=== PATIENT | male | born 1955 | race Caucasian/White ===

== ENCOUNTER 2019-01-20 09:24 | Emergency (ER) | payer BC ==
[2019-01-20] MEDS ORDERED: Ketorolac INJ* 30 MG/ML 1 ML VIAL IV PUSH ONE (09:53)
--- NOTE | 2019-01-20 09:54 | ED ---
GI/ HPI - HPI Summary HPI Summary: 63 year old male presents with flank pain for the past week. He states that he' s never had this pain before. He has a chest pain shortness of breath. He does have a history of PEs. No recent travel. He denies any nausea vomiting. No diarrhea constipation. Pain does not change her half vomiting. No urinary symptoms. No hematuria. Has history of RA and ankylosing spondylitis. He states has history of some cystic mass that was causing him hip pain that needed up popping and causing him bleed into his leg. He is concerned that he has a soft tissue mass in his back. He denies any fevers. - History of Current Complaint Chief Complaint: EDFlankPain Time Seen by Provider: 01/20/19 09:32 Stated Complaint: LOWER LEFT ABDOMINAL PAIN PER PT Pain Intensity: 10 - Additional Pertinent History Primary Care Physician: [id number] - Allergy/Home Medications Allergies/Adverse Reactions: Allergies Allergy/AdvReac Type Severity Reaction Status Date / Time No Known Allergies Allergy Verified 01/20/19 09:28 Home Medications: Home Medications Certolizumab Pegol [Cimzia] 200 mg SUBCUT .EVERY 2 WEEKS 01/20/19 [History Confirmed 01/20/19] Cholecalciferol CAP/TAB(NF) [Vitamin D3 CAP/TAB (NF)] 5,000 unit PO DAILY [History Confirmed 01/20/19] Glucosamine CAP (NF) 1,000 cap PO DAILY 01/20/19 [History Confirmed 01/20/19] Losartan TAB* [Cozaar TAB*] 100 mg PO DAILY 01/20/19 [History Confirmed 01/20/19 ] Methylphenidate HCl [Methylphenidate LA] 20 mg PO TID 01/20/19 [History Confirmed 01/20/19] Rivaroxaban TAB(*) [Xarelto 20 mg] 20 mg PO DAILY 01/20/19 [History Confirmed ] buPROPion TAB* [Wellbutrin TAB*] 75 mg PO DAILY 01/20/19 [History Confirmed ] buPROPion TAB* [Wellbutrin TAB*] 150 mg PO DAILY 01/20/19 [History Confirmed ] predniSONE TAB* [Deltasone TAB*] 2.5 mg PO DAILY 01/20/19 [History Confirmed ] PMH/Surg Hx/FS Hx/Imm Hx Endocrine/Hematology History: Denies: Hx Anticoagulant Therapy, Hx Blood Disorders, Hx Blood Transfusions, Hx Bone Marrow Disease, Hx Diabetes, Hx Systemic Lupus Erythematosus, Hx Sickle Cell Disease, Hx Thyroid Disease, Hx Anemia, Hx Unexplained Bleeding, Other Endocrine/Hematological Disorders Cardiovascular History: Reports: Hx Hypertension Denies: Hx Aneurysm, Hx Angina, Hx Angioplasty, Hx Auto Implanted Cardiovert Defib, Hx Cardiac Arrest, Hx Cardiomegaly, Hx Congenital Heart Disease, Hx Congestive Heart Failure, Hx Coronary Artery Disease, Hx Deep Vein Thrombosis, Hx Hypercholesterolemia, Hx Hypotension, Hx Pacemaker/ICD, Hx Peripheral Vascular Disease, Hx Rheumatic Fever, Hx Syncope, Hx Valvular Heart Disease, Other Cardiovascular Problems/Disorders Respiratory History: Reports: Hx Asthma Denies: Hx Bronchopulmonary Dysplasia, Hx Chronic Bronchitis, Hx Chronic Obstructive Pulmonary Disease (COPD), Hx Cystic Fibrosis, Hx Lung Cancer, Hx Pleural Effusion, Hx Pneumonia, Hx Pulmonary Edema, Hx Pulmonary Embolism, Hx Seasonal Allergies, Hx Sleep Apnea, Other Respiratory Problems/Disorders GI History: Denies: Hx Cirrhosis, Hx Crohn's Disease, Hx Diverticulosis, Hx Gall Bladder Disease, Hx Gastroesophageal Reflux Disease, Hx Gastrointestinal Bleed, Hx Hiatal Hernia, Hx Irritable Bowel, Hx Jaundice, Hx Obstructive Bowel, Hx Ileostomy, Hx Pyloric Stenosis, Hx Ulcer, Other GI Disorders History: Denies: Hx Acute Renal Failure, Hx Benign Prostatic Hyperplasia, Hx Chronic Renal Failure, Hx Dialysis, Hx Kidney Infection, Hx Kidney Stones, Hx Renal Disease, Other Problems/Disorders Musculoskeletal History: Reports: Hx Arthritis, Hx Back Problems Denies: Hx Bursitis, Hx Congenital Bone Abnormalities, Hx Fibromyalgia, Hx Gout, Hx Orthopedic Injury, Hx Osteoporosis, Hx Scoliosis, Hx Tendonitis, Other Musculoskeletal History Sensory History: Reports: Hx Contacts or Glasses Denies: Hx Eye Injury, Hx Eye Prosthesis, Hx Glaucoma, Hx Macular Degeneration, Hx Vision Problem, Hx Deafness, Hx Hearing Aid, Hx Hearing Problem , Other Sensory Impairments Opthamlomology History: Reports: Hx Contacts or Glasses Denies: Hx Eye Injury, Hx Eye Prosthesis, Hx Glaucoma, Hx Macular Degeneration, Hx Vision Problem, Other Sensory Impairments Neurological History: Reports: Hx Headaches Denies: Hx Dementia, Hx Developmental Delay, Hx Migraine, Hx Seizures, Hx Spinal Cord Injury, Hx Transient Ischemic Attacks (TIA) Psychiatric History: Reports: Hx Depression Denies: Hx Anxiety, Hx Attention Deficit Hyperactivity Disorder, Hx Autism, Hx Eating Disorder, Hx Oppositional [place] Disorder, Hx Panic Disorder, Hx Post Traumatic Stress Disorder, Hx Inpatient Treatment, Hx Community Mental Health Tx, Hx Schizophrenia, Hx Bipolar Disorder, Hx Suicide Attempt, Other Psychiatric Issues/Disorders - Cancer History Hx Hematologic Symptoms: No Hx Chemotherapy: No Hx Radiation Therapy: No - Surgical History Surgery Procedure, Year, and Place: I AND D SEROMA L HIP. I AND D HEMATOMA L HIP Hx Anesthesia Reactions: No Infectious Disease History: No Infectious Disease History: Denies: Hx Clostridium Difficile, Hx Hepatitis, Hx Human Immunodeficiency Virus (HIV), Hx Shingles, Hx Tuberculosis, Traveled Outside the [place] in Last 30 Days - Social History Alcohol Use: None Hx Substance Use: No Substance Use Type: Reports: None Hx Tobacco Use: No Smoking Status (MU): Never Smoked Tobacco Review of Systems Negative: Fever Negative: Chest Pain Negative: Shortness Of Breath Positive: flank pain All Other Systems Reviewed And Are Negative: Yes Physical Exam Triage Information Reviewed: Yes Vital Signs On Initial Exam: Initial Vitals Temp Pulse Resp BP Pulse Ox 96.3 F 83 20 155/95 98 01/20/19 09:25 01/20/19 09:25 01/20/19 09:25 01/20/19 09:25 01/20/19 09:25 Vital Signs Reviewed: Yes Appearance: Positive: Well-Appearing Skin: Positive: Warm, Dry Head/Face: Positive: Normal Head/Face Inspection Eyes: Positive: Normal, Conjunctiva Clear ENT: Positive: Pharynx normal Respiratory/Lung Sounds: Positive: Clear to Auscultation, Breath Sounds Present Cardiovascular: Positive: Normal, RRR Abdomen Description: Positive: Nontender, Soft, CVA Tenderness (L) Bowel Sounds: Positive: Present Musculoskeletal: Positive: Normal Neurological: Positive: Normal Psychiatric: Positive: Normal Procedures - Sedation Patient Received Moderate/Deep Sedation with Procedure: No Diagnostics - Vital Signs Vital Signs Temp Pulse Resp BP Pulse Ox 01/20/19 09:25 96.3 F 83 20 155/95 98 - Laboratory Result Diagrams: 01/20/19 09:51 01/20/19 09:51 Lab Statement: Any lab studies that have been ordered have been reviewed, and results considered in the medical decision making process. - CT lumbar CT Interpretation Completed By: Radiologist Summary of CT Findings: IMPRESSION: Degenerative disc disease at L2-L3, L3-L4, L4-L5. Spondylitic ridge is noted. Lytic lesion is noted at L3 likely representing a cyst. No fracture is noted. abd CT Interpretation Completed By: Radiologist Summary of CT Findings: IMPRESSION: FATTY INFILTRATION OF THE LIVER. NO HYDRONEPHROSIS OR NEPHROLITHIASIS. - EKG No standard instances Cardiac Rate: NL EKG Rhythm: Sinus Rhythm GIGU Course/Dx - Course Course Of Treatment: 63 year old male presents with flank pain for the past week. He states that he's never had this pain before. He has a chest pain shortness of breath. He does have a history of PEs. No recent travel. He denies any nausea vomiting. No diarrhea constipation. Pain does not change her half vomiting. No urinary symptoms. No hematuria. Has history of RA and ankylosing spondylitis. He states has history of some cystic mass that was causing him hip pain that needed up popping and causing him bleed into his leg. He is concerned that he has a soft tissue mass in his back. He denies any fevers. On exam has mild tenderness of left flank. wbc normal. EKG shows sinus rhythm. Troponin 0. D-dimer is negative. LFTs normal. CT lumbar shows degenerative changes and lytic lesion L3. ct abd normal. urine likely contaminant. will have follow up with neurosurgery. patient understand and agrees with plan. - Diagnoses Differential Diagnoses - Male: Ureteral Calculi, Urinary Tract Infection, Other - fracture Provider Diagnoses: Flank pain Discharge ED - Sign-Out/Discharge Documenting (check all that apply): Patient Departure - Discharge Plan Condition: Good Disposition: HOME Patient Education Materials: Flank Pain (ED) Referrals: Anthony Sky MD [Primary Care Provider] - Monty Allen MD [Medical Doctor] - Additional Instructions: Use ibuprofen or Tylenol for pain every 6 hours ice/heat area, move as much as possible Follow up with primary within 5 days follow up with neurosurgery Return to ED if develop any new or worsening symptoms - Billing Disposition and Condition Condition: GOOD Disposition: Home
[2019-01-20 09:58] LABS: ABS Basophils 0.1 10^3/ul (0-0.2); ABS Eosinophils 0.1 10^3/ul (0-0.6); ABS Lymphocytes 1.7 10^3/ul (1.0-4.8); ABS Monocytes 0.4 10^3/ul (0-0.8); ABS Neutrophils 3.9 10^3/ul (1.5-7.7); Eosinophil % 2.3 %; Hematocrit 49 % (42-52); Hemoglobin 16.5 g/dL (14.0-18.0); Mean Corpuscular HGB Conc 34 g/dL (31-36); Mean Corpuscular Hemoglobin 32 pg (27-31); Mean Corpuscular Volume 93 fL (80-94); Mean Platelet Volume 7.2 fL (7.4-10.4); Nucleated Red Blood Cells % 0.1; Platelet Count 227 10^3/uL (150-450); Red Blood Count 5.22 10^6 /uL (4.18-5.48); Red Cell Distribution Width 13 % (10-15); White Blood Count 6.2 10^3/uL (3.5-10.8)
[2019-01-20 10:17] LABS: Albumin 4.3 g/dL (3.2-5.2); Albumin/Globulin Ratio 1.4 (1-3); BUN/Creatinine Ratio 17.9 (8-20); C Reactive Protein 1.79 mg/L (<8.01); Calcium 9.5 mg/dL (8.6-10.3); EGFR African American 80.4 (>60); EGFR Non-African American 66.4 (>60); Globulin 3.1 g/dL (2-4); Potassium 4.5 mmol/L (3.5-5.0); Total Bilirubin 0.7 mg/dL (0.2-1.0); Total Protein 7.4 g/dL (6.4-8.9); Troponin I 0.01 ng/mL (<0.03)
[2019-01-20] MEDS ORDERED: Iohexol 300* (CONTRAST) 10 ML SDV IV ONE (10:41)
[2019-01-20 11:36] LABS: Urine Appearance Clear; Urine Bilirubin Negative (Negative); Urine Blood 1+ (Negative); Urine Color Yellow; Urine Glucose Negative (Negative); Urine Ketones Negative (Negative); Urine Nitrite Negative (Negative); Urine Protein Negative (Negative); Urine Specific Gravity 1.012 (1.010-1.030); Urine Urobilinogen Negative (Negative)
[2019-01-20 11:47] LABS: Urine Bacteria Absent (Absent); Urine Red Blood Cell 1+(3-5/hpf) (Absent); Urine White Blood Cell Trace(0-5/hpf) (Absent)
[2019-01-20 11:55] VITALS: BP 133/86
== END 2019-01-20 11:45 | disposition home or self-care (01) ==
LOC: ED 09:24
DX: R10.32 Left lower quadrant pain (principal); R07.89 Other chest pain; R06.02 Shortness of breath; M51.36 Other intervertebral disc degeneration, lumbar region; K76.0 Fatty (change of) liver, not elsewhere classified; M89.9 Disorder of bone, unspecified; I10 Essential (primary) hypertension; Z86.711 Personal history of pulmonary embolism; Z79.01 Long term (current) use of anticoagulants; M06.9 Rheumatoid arthritis, unspecified; M45.9 Ankylosing spondylitis of unspecified sites in spine; F32.9 Major depressive disorder, single episode, unspecified
CPT/HCPCS: 36415; 72131; 74177; 80053; 81003; 81015; 83690; 84484; 85025; 85379; 86140; 87086; 93005; 99284; J1885; Q9967

== ENCOUNTER 2019-05-11 10:56 | Inpatient (IN) | payer BC ==
--- NOTE | 2019-05-03 16:34 | HP ---
Amended report to enter cosigning physician on report. HISTORY AND PHYSICAL: DATE OF ADMISSION/SURGERY: 05/11/19 DATE OF OFFICE VISIT: 05/01/19 PRIMARY CARE PHYSICIAN: Dr. Anthony Sky. SURGEON: Tanya Almendraez MD* PROCEDURE: Right total knee arthroplasty. CHIEF COMPLAINT: Right knee pain. HISTORY OF PRESENT ILLNESS: Mr. Hollis is a 63-year-old gentleman with end- stage osteoarthritis of the right knee. He has failed conservative treatment and elected to proceed with a right total knee arthroplasty. PAST MEDICAL HISTORY: High cholesterol, ankylosing spondylitis, RA, hypertension, DISH, history of DVT/PE. PAST SURGICAL HISTORY: Excision of hematoma, left hip. CURRENT MEDICATIONS: 1. Vitamin D3. 2. Losartan potassium 100 mg daily. 3. AndroGel. 4. Ibuprofen as needed. 5. Methylphenidate 20 mg as needed. 6. Xarelto 20 mg a day. 7. Hydrochlorothiazide 25 mg a day. 8. Voltaren gel. 9. Meclizine 1 to 2 tabs as needed. 10. Wellbutrin 75 mg a day. 11. Cymbalta. 12. Chondroitin. ALLERGIES: No known drug allergies. FAMILY HISTORY: Melanoma. SOCIAL HISTORY: He is a 63-year-old gentleman, lives alone. He does not smoke or use drugs. REVIEW OF SYSTEMS: A complete 14-point review of systems was reviewed with the patient. It was positive for history of DVT/PE. He denies history of anesthesia problems or kidney disease. PHYSICAL EXAMINATION GENERAL: He is well developed, well nourished, in no acute distress. VITAL SIGNS: He stands 76 inches tall, weighs 263 pounds. His blood pressure is 152/82 and his heart rate is 95. HEENT: Normocephalic, atraumatic. NECK: Supple. No palpable lymph nodes. PULMONARY: The lungs are clear to auscultation bilaterally. CARDIO: Regular rate and rhythm. Strong S1, S2. ABDOMEN: Soft, nontender, nondistended. MUSCULOSKELETAL: Right lower extremity: The skin is intact. There are no open wounds or abrasions. There is a moderate effusion of the right knee joint and he has some tenderness along the medial and lateral joint lines. Range of motion is 10 to 110 degrees of flexion with patellofemoral crepitus. He is able to dorsiflex and plantarflex. He has a 2+ dorsalis pedis pulse and intact sensation. NEUROLOGIC: He is alert and oriented x3. ASSESSMENT AND PLAN: Mr. Hollis is a 63-year-old gentleman with end-stage osteoarthritis of the right knee. He has failed conservative treatment and elected to proceed with a right total knee arthroplasty. The surgery is scheduled for 05/11/[address] Almendarez discussed the risks and benefits of the surgery at today's visit and all of his questions were answered. He will follow up with Dr. Almendarez 2 weeks after the surgery. No TXA will be used in this. He was instructed to discontinue his Xarelto 6 days prior to the surgery. He will bridge with Lovenox. EMELINA OLEA [id number]/[facility] #: [id number] MTDNey
[~2019-05-11 10:56] MED LIST: Buffered Lidocaine 1% SYRIN* 1 ML/SYRINGE INTRADERM ONE; Dexamethasone IV* 4 MG/ML 1 ML (4 MG) IV SLOW PU ONE; Famotidine IV* 10 MG/ML 2 ML (20 mg) IV ONE; Gabapentin CAP(*) 300 MG PO ONE; Lactated Ringers 1000 ML Bag* 1,000 ML IV SCH
--- OUTSIDE RECORDS SUMMARY | 2019-05-11 11:01 | XMS REPORT | Continuity of Care Document ---
:1955 External Reference #:[id number] Author Name Tanya Almendarez M.D. (transmitted by agent of provider Noal Brown) Address [address] [place] [address] [place] [address] Care Team Providers Name Role Phone Anthony Sky MD - Endocrinology, Care Team Information Real Estate Legal Assistant Diabetes & Metabolism Problems Active Problems Provider Date Rheumatoid arthritis Gerald Chowdary M.D. Onset: 12/17/2011 Ankylosing spondylitis Gerald Chowdary M.D. Onset: 12/17/2011 Medications [facility] (Current) Use Gerald Chowdary M.D. Onset: 12/17/2011 Encounter Chronic pain syndrome Gerald Chowdary M.D. Onset: 03/15/2012 Cellulitis and abscess of toe Gerald Chowdary M.D. Onset: 08/23/2013 Malignant essential hypertension Leo Cottrell M.D. Onset: 11/07/2013 Degenerative joint disease involving Surinder Marquez M.D. Onset: 11/15/2013 multiple joints Taking medication ZURI Rocha Onset: 04/25/2014 Localized, primary osteoarthritis Tanya Almendarez M.D. Onset: 07/10/2015 Brachial neuritis Valdez Mai M.D. Onset: 04/21/2017 Cervical spondylosis without myelopathy Valdez Mai M.D. Onset: 03/31/2017 Social History Type Date Description Comments Sex Unknown Smokeless Tobacco Never Used Smokeless Tobacco ETOH Use Rarely consumes alcohol Tobacco Use Start: Unknown Patient has never smoked Recreational Drug Use Denies Drug Use Smoking Status Reviewed: 03/29/19 Patient has never smoked Exercise Type/Frequency Does not exercise Allergies, Adverse Reactions, Alerts Description No Known Drug Allergies Medications Active Medications SIG Qnty Indications Ordering Date Provider Cimzia Starter Kit inject 400mg 9units M45.0 Stef Mariano, 09/14/2018 6X 200 mg/ML under the skin M.D. Kit at weeks 0, 2, and 4 then 200 mg sq every 2 weeks Sulfasalazine take 2 tabs in 60tabs Stef Quintana, 09/15/2017 500mg Tablets the morning and M.D. 2 tabs in the evening for a total of 4 daily tabs daily ongoing Wrist Splint use nightly to 2units G56.03 Ste[facility] Quintana, [facility] carpal tunnel syndrome in the right and left hand Ra Vitamin D-3 take 1 capsule 90caps Stef Gibsondor, 05/26/2017 2000Unit by mouth once M.D. Capsules daily Losartan Potassium 1 by mouth 90tabs Gerald Chowdary, 11/08/2013 100mg every day M.D. Tablets Androgel apply 5 gm 30daysup Unknown 50mg/5GM Gel daily Ibuprofen prn 20tabs Unknown 400mg Tablets Methylphenidate HCL ER prn Unknown 20mg Xarelto by mouth qd Unknown 20mg Tablets Hydrochlorothiazide 1 by mouth Unknown 25mg every day Tablets Diclofenac Sodium 3 crams Unknown 3% Gel topically 2-4 times a day as needed Meclizine HCL 1-2 tab two Unknown 12.5mg Tablets times a day prn Bupropion HCL Agnieszka Saab, 75mg Tablets Prednisone Agnieszka Saab, 2.5mg Tablets Medications Administered in Office Medication SIG Qnty Indications Ordering Provider Date Depomedrol 40MG Chaya Campbell M.D. 01/05/2018 Injection Depomedrol 40MG Chaya Campbell M.D. 01/05/2018 Injection Synvisc Or Synvisc-One Tanya Almendarez M.D. 03/25/2016 Injection 1 MG Injection Synvisc Or Synvisc-One Tanya Almendarez M.D. 03/18/2016 Injection 1 MG Injection Synvisc Or Synvisc-One Tanya Almendarez M.D. 03/11/2016 Injection 1 MG Injection Depomedrol 40MG Tanya Almendarez M.D. 12/18/2015 Injection Depomedrol 40MG Tanya Almendarez M.D. 07/24/2015 Injection Immunizations CPT Code Status Date Vaccine Reaction Lot # [id number] Given 09/15/2017 Pneumococcal Conjugate no immediate reaction [id number] Vaccine 13 Valent For noted Intramuscular Use Vital Signs Date Vital Result Comment 03/29/2019 9:45am Height 76 inches 6'4" Weight 266.00 lb Heart Rate 92 /min BP Systolic 138 mmHg BP Diastolic 82 mmHg Body Temperature 99.1 F Pain Level 7 BMI (Body Mass Index) 32.4 kg/m2 09/14/2018 8:07am Height 76 inches 6'4" Weight 289.25 lb Heart Rate 97 /min BP Systolic 142 mmHg BP Diastolic 84 mmHg Pain Level 3 O2 % BldC Oximetry 97 % BMI (Body Mass Index) 35.2 kg/m2 Results Test Acquired Date Facility Test Result H/L Range Note Comp Metabolic 11/16/2018 [facility] Sodium 139 mmol/L Normal 135-145 1 [address] [place] [address] [phone] Potassium 4.0 mmol/L Normal 3.5-5.0 Chloride 100 mmol/L Low 101-111 Co2 Carbon Dioxide 32 mmol/L Normal 22-32 Anion Gap 7 mmol/L Normal 2-11 Glucose 104 mg/dL High 70-100 Blood Urea Nitrogen 17 mg/dL Normal 6-24 Creatinine 1.13 mg/dL Normal 0.67-1.17 BUN/Creatinine Ratio 15.0 Normal 8-20 Calcium 9.4 mg/dL Normal 8.6-10.3 Total Protein 7.1 g/dL Normal 6.4-8.9 Albumin 4.4 g/dL Normal 3.2-5.2 Globulin 2.7 g/dL Normal 2-4 Albumin/Globulin Ratio 1.6 Normal 1-3 Total Bilirubin 0.80 mg/dL Normal 0.2-1.0 Alkaline Phosphatase 45 U/L Normal 34-104 Alt 43 U/L Normal 7-52 Ast 28 U/L Normal 13-39 Egfr Non- 65.8 >60 Egfr 79.6 >60 2 Laboratory 11/16/2018 [facility] Testosterone 668.81 Normal 240-950 3, 4 test finding [address] Total ng/[place] [address] [phone] PSA Screening 0.782 ng/mL Normal 0-4.000 5 Lipid Profile 11/16/2018 [facility] Triglycerides 212 mg/dL 6 (Trig/Chol/HDL) [address] [place] [address] [phone] Cholesterol 140 mg/dL 7 HDL Cholesterol 36.5 mg/dL 8 LDL Cholesterol 61 mg/dL 9 Laboratory test 11/16/2018 [facility] C Reactive 1.16 Normal < 8.01 [address] Protein mg/[place] [address] [phone] CBC Auto Diff 11/16/2018 [facility] White Blood 6.2 Normal 3.5 -10.[address] Count 10^3/[place] [address] [phone] Red Blood Count 5.58 10^6/uL High 4.18-5.48 Hemoglobin 17.3 g/dL Normal 14.0-18.0 Hematocrit 51 % Normal 42-52 Mean Corpuscular Volume 91 fL Normal 80-94 Mean Corpuscular Hemoglobin 31 pg Normal 27-31 Mean Corpuscular HGB Conc 34 g/dL Normal 31-36 Red Cell Distribution Width 14 % Normal 10-15 Platelet Count 233 10^3/uL Normal 150-450 Mean Platelet Volume 7.3 fL Low 7.4-10.4 Abs Neutrophils 3.7 10^3/uL Normal 1.5-7.7 Abs Lymphocytes 1.8 10^3/uL Normal 1.0-4.8 Abs Monocytes 0.4 10^3/uL Normal 0-0.8 Abs Eosinophils 0.2 10^3/uL Normal 0-0.6 Abs Basophils 0.1 10^3/uL Normal 0-0.2 Abs Nucleated RBC 0.0 10^3/uL Granulocyte % 60.0 % Lymphocyte % 29.5 % Monocyte % 7.1 % Eosinophil % 2.4 % Basophil % 1.0 % Nucleated Red Blood Cells % 0.3 Laboratory test 11/16/2018 [facility] Erythrocyte Sed 0 mm/Hr Normal 0-19 [address] [place] [address] [phone] Hemoglobin A1c (Glyco HGB) 6.3 % High 4.0-5.6 12 1 MAIL TO [address] [place] [id number] 2 Because ethnic data is not always readily available, this report includes an eGFR for both -Americans and non- Americans. The National Kidney Disease Education Program (NKDEP) does not endorse the use of the MDRD equation for patients that are not between the ages of 18 and 70, are , have extremes of body size, muscle mass, or nutritional status, or are non- or non-. According to the National Kidney Foundation, irrespective of diagnosis, the stage of the disease is based on the level of kidney function: Stage Description GFR(mL/min/1.73 m(2)) 1 Kidney damage with normal or decreased GFR 90 2 Kidney damage with mild decrease in GFR 60-89 3 Moderate decrease in GFR 30-59 4 Severe decrease in GFR 15-29 5 Kidney failure <15 (or dialysis) 3 PLEASE MAIL TO: [address] [facility] [id number] 4 PLEASE MAIL TO: [address] [facility] [id number] 5 Serum levels of PSA measured using the [employer] [place] DXI Hybritech immunoassay should not be interpreted as absolute evidence of the presence or absence of disease. The PSA value should be used in conjunction with other pertinent clinical diagnostic procedures. The values obtained with different assay methods or kits cannot be used interchangeably. 6 Desirable: <150 Borderline High: 150-199 High: 200-499 Very High: >500 7 Desirable: <200 Borderline High: 200-239 High: >239 8 Low: <40 Desirable: 40-60 High: >60 9 Desirable: <100 Near Optimal: 100-129 Borderline High: 130-159 High: 160-189 Very High: >189 10 PLEASE MAIL TO: [address] [facility] [facility] [id number] 11 [facility] [id number] 12 Therapeutic target for the treatment of diabetes mellitus patients is <7% HBA1C, and in selective patients <6.0%. Please refer to [place] Diabetes Association diabetic care guidelines for further information. Procedures Description No Information Available Medical Devices Description No Information Available Encounters Description No Information Available Assessments Date Code Description Provider 03/29/2019 M25.561 Pain in right knee Tanya Almendarez M.D. 03/29/2019 M17.11 Unilateral primary osteoarthritis, right knee Tanya Almendarez M.D. Plan of Treatment 03/29/2019 - Tanya Almendarez M.D.M25.561 Pain in right kneeReferral:Mohini Sahu MD, Hematology & OncologyFollow up:Follow up: will call Marly to schedule TKAM17.11 Unilateral primary osteoarthritis, right knee Functional Status Description No Information Available Mental Status Description No Information Available Referrals Refer to Reason for Referral Status Appt Date Mohini Sahu MD workup for possible TKA; prior blood clot Created [address] [place] [address] [phone]
--- OUTSIDE RECORDS SUMMARY | 2019-05-11 11:01 | XMS REPORT | Continuity of Care Document ---
:1955 External Reference #:[id number] Author Name Tanya Almendarez M.D. (transmitted by agent of provider Chaya Delgadillo) Address [address] [place] [id number] Care Team Providers Name Role Phone Anthony Sky MD - Endocrinology, Care Team Information Implant Coordinator Diabetes & Metabolism Problems Active Problems Provider Date Rheumatoid arthritis Gerald Chowdary M.D. Onset: 12/17/2011 Ankylosing spondylitis Gerald Chowdary M.D. Onset: 12/17/2011 Medications Entry Specialist (Current) Use Gerald Chowdary M.D. Onset: 12/17/2011 Encounter Chronic pain syndrome Gerald Chowdary M.D. Onset: 03/15/2012 Cellulitis and abscess of toe Gerald Chowdary M.D. Onset: 08/23/2013 Malignant essential hypertension Leo Cottrell M.D. Onset: 11/07/2013 Degenerative joint disease involving Surinder Marquez M.D. Onset: 11/15/2013 multiple joints Taking medication ZURI Rocha Onset: 04/25/2014 Localized, primary osteoarthritis Tanya Almendarez M.D. Onset: 07/10/2015 Cervical spondylosis without myelopathy Valdez Mai M.D. Onset: 03/31/2017 Brachial neuritis Valdez Mai M.D. Onset: 04/21/2017 Social History Type Date Description Comments Sex Unknown Smokeless Tobacco Never Used Smokeless Tobacco ETOH Use Rarely consumes alcohol Tobacco Use Start: Unknown Patient has never smoked Recreational Drug Use Denies Drug Use Smoking Status Reviewed: 05/01/19 Patient has never smoked Exercise Type/Frequency Does not exercise Allergies, Adverse Reactions, Alerts Description No Known Drug Allergies Medications Active Medications SIG Qnty Indications Ordering Date Provider Lovenox inject 1 5units Tanya Almendarez, 40mg/0.4ML Solution prefilled syringe M.DDavis 0 subcutaneous daily for 5 days Cimzia Starter Kit inject 400mg 9units M45.0 [place] 6X 200 mg/ML under the skin at Alexandr Quintana 9 Kit weeks 0, 2, and 4 then 200 mg sq every 2 weeks Sulfasalazine take 2 tabs in 60tabs [place] 500mg Tablets the morning and 2 Alexandr Quintana 8 tabs in the evening for a total of 4 daily tabs daily ongoing Wrist Splint use nightly to 2units G56.[address] [place] [facility] [place]pal Alexandr Quintana 8 tunnel syndrome in the right and left hand Ra Vitamin D-3 take 1 capsule by 90caps [place] 2000Unit mouth once daily Alexandr Quintana 8 Capsules Losartan Potassium 1 by mouth every 90tabs Cassoday 100mg day EndoCoralDDavis 4 Tablets Androgel apply 5 gm daily 30daysup Unknown 50mg/5GM Gel 0 Ibuprofen prn 20tabs Unknown 400mg Tablets 0 Methylphenidate HCL ER prn Unknown 20mg 0 Xarelto by mouth qd Unknown 20mg Tablets 0 Hydrochlorothiazide 1 by mouth every Unknown 25mg day 0 Tablets Diclofenac Sodium 3 crams topically Unknown 3% Gel 2-4 times a day 0 as needed Meclizine HCL 1-2 tab two times Unknown 12.5mg Tablets a day prn 0 Bupropion HCL O'sruthi, 75mg Tablets MD Agnieszka 0 Prednisone O'sruthi, 2.5mg Tablets MD Agnieszka 0 Medications Administered in Office Medication SIG Qnty [...] Code Status Date Vaccine Reaction Lot # [id number] Given 09/15/2017 Pneumococcal Conjugate no immediate reaction [id number] Vaccine 13 Valent For noted Intramuscular Use Vital Signs Date Vital Result Comment 05/01/2019 8:32am Height 76 inches 6'4" Weight 263.00 lb Heart Rate 95 /min BP Systolic 152 mmHg BP Diastolic 82 mmHg Body Temperature 97.4 F Pain Level 5 BMI (Body Mass Index) 32.0 kg/m2 03/29/2019 9:45am Height 76 inches 6'4" Weight 266.00 lb Heart Rate 92 /min BP Systolic 138 mmHg BP Diastolic 82 mmHg Body Temperature 99.1 F Pain Level 7 BMI (Body Mass Index) 32.4 kg/m2 Results Test Acquired Date Facility Test Result H/L Range Note Inr/Protime 04/28/2019 [facility] Inr 1.29 High 0.82-1.09 1, [address] [place] [address] [phone] Laboratory test 04/28/2019 [facility] Partial 41.2 seconds High 26.0-38.[address] [place] [address] PTT [phone] Type & Screen 04/28/2019 [facility] Patient O Positive [address] [place] [address] [phone] Antibody Screen NEGATIVE Comp Metabolic 11/16/2018 [facility] Sodium 139 mmol/L Normal 135-[address] [place] [address] [phone] Potassium 4.0 mmol/L Normal 3.5-5.0 Chloride 100 [...] Egfr Non- 65.8 >60 Egfr 79.6 >60 4 Laboratory 11/16/2018 [facility] Testosterone 668.81 Normal 240-950 5, 6 test finding [address] Total ng/[place] [address] [phone] PSA Screening 0.782 ng/mL Normal 0-4.000 7 Lipid Profile 11/16/2018 [facility] Triglycerides 212 mg/dL 8 (Trig/Chol/HDL) [address] [place] [address] [phone] Cholesterol 140 mg/dL 9 HDL Cholesterol 36.5 mg/dL 10 LDL Cholesterol 61 mg/dL 11 Laboratory test 11/16/2018 [facility] C Reactive 1.16 Normal < 8.01 [address] Protein mg/L [place], [place] [id number] [phone] CBC Auto Diff 11/16/2018 [facility] White Blood 6.2 Normal 3.5 -10.[address] Count 10^3/[place] [address] [phone] Red Blood Count 5.58 10^6/uL High 4.18-5.48 [...] Blood Cells % 0.3 Laboratory test 11/16/2018 [facility] Erythrocyte Sed 0 mm/Hr Normal 0-19 [address] [place] [address] [phone] Hemoglobin A1c (Glyco HGB) 6.3 % High 4.0-5.6 14 1 PAIN IN RIGHT KNEE, UNILATERAL PRIMARY OSTEOARTHRI 2 Standard intensity warfarin therapeutic range: 2.0-3.0 High intensity warfarin therapeutic range: 2.5-3.5 3 MAIL TO [address] [facility] [id number] 4 Because ethnic data is not always readily [...] 15-29 5 Kidney failure <15 (or dialysis) 5 PLEASE MAIL TO: [address] [facility] [id number] 6 PLEASE MAIL TO: [address] [facility] [address] 7 Serum levels of PSA measured using the Camila Barbara DXI Hybritech immunoassay should not be interpreted as absolute evidence of the presence or absence of disease. The PSA value should be used in conjunction with other pertinent clinical diagnostic procedures. The values obtained with different assay methods or kits cannot be used interchangeably. 8 Desirable: <150 Borderline High: 150-199 High: 200-499 Very High: >500 9 Desirable: <200 Borderline High: 200-239 High: >239 10 Low: <40 Desirable: 40-60 High: >60 11 Desirable: <100 Near Optimal: 100-129 Borderline High: 130-159 High: 160-189 Very High: >189 12 PLEASE MAIL TO: [address] [facility] [id number] 13 PLEASE MAIL TO: [address] [facility] [phone] 14 Therapeutic target for the treatment of diabetes mellitus patients is <7% HBA1C, and in selective patients <6.0%. Please refer to [place] [employer] diabetic care guidelines for further information. Procedures Description No Information Available Medical Devices Description No Information Available Encounters Type Date Location Provider Dx Diagnosis Office Visit 03/29/2019 [facility] Cedrick Lujan5.561 Pain in right 9:30a at [place] Alexandr knee M17.11 Unilateral primary osteoarthritis, right knee Assessments Date Code Description Provider 05/01/2019 M25.561 Pain in right knee Tanya Almendarez M.D. 05/01/2019 M17.11 Unilateral primary osteoarthritis, right knee Tanya Almendarez M.D. 03/29/2019 M25.561 Pain in right knee Tanya Almendarez M.D. 03/29/2019 M17.11 Unilateral primary osteoarthritis, right knee Tanya Almendarez M.D. Plan of Treatment Future Appointment(s):05/24/2019 10:30 am - EMELINA Rizo at [facility] at Aynymq3605/11/2019 12:30 pm - Mark Olmstead PA-C at [facility] at Jnucsj7705/11/2019 12:30 pm - EMELINA Rizo at [facility] at Uzigrj4205/11/2019 12:30 pm - Tanya Almendarez M.D. at [facility] at Epfhhx0305/01/2019 - Tanya Almendarez M.D.M25.561 Pain in right kneeFollow up:Follow up: 2 weeks after [id number] Unilateral primary osteoarthritis, right knee Functional Status Description No Information Available Mental Status Description No Information Available Referrals Refer to Dr Reason for Referral Status Appt Date Mohini Sahu MD workup for possible TKA; prior blood clot Closed 2019 [address] [place] [address] [phone]
[2019-05-11] MEDS ORDERED: ceFAZolin 2 GM PREMIX in ORs 2 GM/50 ML BAG ONE (11:12)
[2019-05-11] MEDS ORDERED: Gabapentin CAP(*) 300 MG ONE (11:13)
[2019-05-11] MEDS ORDERED: Dexamethasone IV* 4 MG/ML 1 ML (4 MG) ONE (11:13)
[2019-05-11] MEDS ORDERED: Famotidine IV* 10 MG/ML 2 ML (20 mg) ONE (11:13)
[2019-05-11 12:24] LABS: Activated Partial Thrombo Time 34.8 seconds (26.0-38.0); INR 0.98 (0.82-1.09)
[2019-05-11] MEDS ORDERED: ROPIVACAINE 5 MG/ML 30 ML BTL (0.5%) ONE ×3 (12:41→12:57)
[2019-05-11] MEDS ORDERED: fentaNYL* 50 MCG/ML 2 ML VIAL (100 MCG VIAL) ONE ×5 (12:51→17:12)
[2019-05-11] MEDS ORDERED: KETAMINE HCL* 50 MG/ML 10 ML VIAL ONE (12:51)
[2019-05-11] MEDS ORDERED: Midazolam* 1 MG/ML 5 ML VIAL (5 MG) ONE (12:51)
[2019-05-11] MEDS ORDERED: oxyCODONE/Acetamin 5/325 MG* TAB PO PRN (13:34)
[2019-05-11] MEDS ORDERED: Naloxone* 0.4 MG/ML 1 ML VIAL IV PRN (13:34)
[2019-05-11] MEDS ORDERED: HYDROcodone/ACETAMIN 5-325 MG* 1 TAB PO PRN (13:34)
[2019-05-11] MEDS ORDERED: DiMENhydriNATE IV* 50 MG/ML VIAL IV PUSH PRN (13:34)
[2019-05-11] MEDS ORDERED: Propofol* 10 MG/ML 20 ML BTL ONE (13:48)
[2019-05-11] MEDS ORDERED: Lidocaine 2% PF * 5 ML VIAL ONE (13:48)
[2019-05-11] MEDS ORDERED: ceFAZolin 1 GM ADVAN(*) 1 GM ADDV.VIAL IVPB ONE (14:06)
[2019-05-11] MEDS ORDERED: Hydrocortisone INJ* 100 MG/2 ML VIAL (in pyxis) ONE (14:08)
[2019-05-11] MEDS ORDERED: EPHEDrine (Pressors)* 50 MG/ML VIAL ONE (14:22)
[2019-05-11] MEDS ORDERED: Ondansetron INJ* 2 MG/ML VIAL ONE (15:27)
[2019-05-11] MEDS ORDERED: Phenylephrine 40 MCG/ML SYRINGE ONE (15:41)
[2019-05-11] MEDS ORDERED: traMADol TAB* 50 MG PO PRN (16:29)
[2019-05-11] MEDS ORDERED: Magnesium Hydroxide LIQ* 30 ML UDC PO PRN (16:29)
[2019-05-11] MEDS ORDERED: Cyclobenzaprine TAB* 10 MG PO PRN (16:29)
[2019-05-11] MEDS ORDERED: diPHENhydraMINE IV* 50 MG/ML 1 ml VIAL (BENADRYL) IV PRN (16:29)
[2019-05-11] MEDS ORDERED: diPHENhydraMINE PO* 25 MG PO PRN (16:29)
[2019-05-11] MEDS ORDERED: Morphine INJ* 2 MG/ML 1 ML SYRINGE (TWO MG - NEW SYRINGE VERSION) IV PRN (16:29)
[2019-05-11] MEDS ORDERED: Ondansetron INJ* 2 MG/ML VIAL IV PRN (16:29)
[2019-05-11] MEDS ORDERED: Polyethylene Glycol 3350* 17 GM PACKET PO PRN (16:29)
[2019-05-11] MEDS ORDERED: Ondansetron TAB* 4 MG PO PRN (16:29)
[2019-05-11] MEDS ORDERED: oxyCODONE TAB* 5 MG TAB PO PRN (16:29)
[2019-05-11] MEDS ORDERED: Ondansetron ODT TAB* 4 MG PO PRN (16:29)
[2019-05-11] MEDS: fentaNYL* 50 MCG/ML 2 ML VIAL (100 MCG VIAL) IV PRN ×4 (17:01→17:15)
[2019-05-11] MEDS ORDERED: buPROPion TAB* 75 MG PO SCH (18:00)
[2019-05-11] MEDS: Lactated Ringers 1000 ML Bag* 1,000 ML IV SCH (18:42)
--- NOTE | 2019-05-11 19:57 | OP ---
Operative Report - Blank - Operative Report Date of Operation: 05/11/19 Note: BETINA RINALDI 1955 Date of Surgery: 05/11/19 Tanya Almendarez MD Anesthesia Director: Oliva TARANGO did help throughout the procedure with preparation of the knee, wound retraction, manipulation of the knee, and wound closure. Anesthesiologist: Dr. Norwood Anesthesia Type: General Preoperative Diagnosis: Right severe degenerative osteoarthritis of the knee Postoperative Diagnosis: As above Procedure Performed: Right Total Knee Arthroplasty Tourniquet time: 53 minutes Complications: None Specimen: Bone and cartilage from the right knee joint sent to pathology. Hardware Used: Cemented De La Rosa and Nephew total knee hardware was used - For the femur a size 8 right oxinium legion posterior stabilized femoral component, for the tibia a size 7 right yareli II tibial baseplate, for the insert a size 9mm 7-8 posterior stabilized articular polyethylene insert, and for the patella a size 35 3-peg all poly patella. Brief History/Indication: BETINA RINALDI was known in clinic and had a history of severe right knee pain and swelling. He failed conservative treatment with anti-inflammatories, pain pills, intra-articular injections and physical therapy. He elected to undergo right total knee arthroplasty due to continued pain and decreased quality of life. Radiographs showed severe end stage osteoarthritis of the knee with bone on bone contact. Informed consent was obtained from the patient. He understood the risks of surgery included but were not limited to: bleeding, infection, damage to nearby structures, intraoperative fracture, nerve palsy, failure of the hardware, early loosening, knee stiffness or loss of motion, anesthesia complications, stroke, heart attack , blood clot and . He wished to proceed. Intra-Operative Findings: Intraoperatively the patient was noted to have severe loss of cartilage in all 3 compartments of the knee. He had a 15 degree flexion contracture to start the case. Description of the Procedure: BETINA RINALDI was identified in the preanesthesia unit. His right knee was marked as the correct operative side. Informed consent was signed and placed in the chart. The patient was taken to the operating room and placed under anesthesia without complication. A hensley catheter was placed. A tourniquet was placed on the right thigh. The right lower extremity was prepped and draped in the usual sterile fashion. Preoperative time-out was made to correctly identify the patient, side and site. Appropriate intraoperative antibiotics were given within one hour of incision. Tourniquet was inflated. A midline incision was made and carried sharply down to the extensor mechanism. A new 10 blade was used to make a standard medial parapatellar arthrotomy. The patella was subluxed laterally. Electrocautery was used to dissect soft tissue off the superomedial tibia to the midsagittal plane. The knee was flexed up. The anterior horn of the lateral meniscus and the ACL were sharply incised. A drill was used to enter the distal femur. The intramedullary distal femoral cutting guide was pinned on the distal femur. The oscillating saw was used to make the distal femoral cut. The external rotation guide was pinned on the distal femur and the distal femur was sized to a size 8. The size 8 multi-cutting jig was pinned on the distal femur. The oscillating saw was used to make the appropriate 4 chamfer cuts. Next the PCL was completely released. The extramedullary tibial cutting guide was pinned on the proximal tibia and the oscillating saw was used to make the proximal tibial cut perpendicular to the mechanical axis of the tibia. The bone was carefully removed. The knee was brought out into full extension. The spacer block was placed and had excellent fit with the knee in full extension. The medial and lateral ligaments were well balanced. The flexion and extension gaps were well balanced. The knee was flexed up. Lamina process tank tender was placed both medially and laterally. Any remaining meniscus was removed with electrocautery. Curved osteotome was used to remove any posterior osteophytes. The tibial tray and drop graciela were placed and confirmed a satisfactory tibial cut. The size 8 right femoral trial was impacted onto the distal femur. This trial had excellent fit and stability. The box for the posterior stabilized implant was prepared using a box cut osteotome and a reamer. Next a tibial tray trial and 9 mm insert trial was placed. The knee was taken through a range of motion and had full extension to 130 degrees of flexion. Patellofemoral tracking was satisfactory. The patella was inverted and sized to a size 35. Three peg holes were drilled through the size 35 drill guide. The trial patella was placed and the knee was taken through a range of motion. There was satisfactory patellofemoral tracking. All trials were removed. The tibia was subluxed anteriorly and sized to a size 7. The proximal tibial was prepared with a size 7 keel punch. All bony cut surfaces were irrigated with sterile saline and dried. Final implants were cemented into place starting with the tibia, followed by the femur, and last the patella. A 9 mm insert trial was placed and the knee was brought into full extension. Tourniquet was turned down and the knee was copiously irrigated with sterile saline. Electrocautery was used to obtain meticulous hemostasis. Once the cement had fully cured, the insert trial was removed. Any excess cement was removed from around the hardware and capsule. Final insert chosen was a 9 mm posterior stabilized Yareli II articular insert size 7-8. Stability of the insert was checked and noted to be stable. The extensor mechanism was closed using number 1 vicryls. The rest of the incision was closed in a layered fashion using 0 and 2-0 vicryls. The skin was closed using 3-0 nylon suture. Sterile xeroform, 4x4s and webril were used to cover the incision. William wrap and cold pack were used to cover the dressings. The patients anesthesia was reversed without difficulty. He was taken to the PACU in stable condition. Intended weight-bearing will be as tolerated.
[2019-05-11] MEDS: oxyCODONE/Acetamin 5/325 MG* TAB PO PRN (20:15)
[2019-05-11] MEDS: Magnesium Hydroxide LIQ* 30 ML UDC PO SCH (20:16)
[2019-05-11] MEDS: Docusate CAP* 100 MG PO SCH (20:16)
[2019-05-11] MEDS: Acetaminophen TAB* 325 MG PO SCH (20:17)
[2019-05-11] MEDS: ceFAZolin 1 GM ADVAN(*) 1 GM in NS 0.9% 50 ML* 50 ML IVPB SCH (22:00)
[2019-05-12] MEDS: oxyCODONE/Acetamin 5/325 MG* TAB PO PRN ×3 (01:03→11:08)
[2019-05-12] MEDS: Lactated Ringers 1000 ML Bag* 1,000 ML IV SCH (05:52)
[2019-05-12] MEDS: ceFAZolin 1 GM ADVAN(*) 1 GM in NS 0.9% 50 ML* 50 ML IVPB SCH ×2 (05:52→13:50)
[2019-05-12 06:02] LABS: Hematocrit 39 % (42-52); Hemoglobin 13.1 g/dL (14.0-18.0); Mean Platelet Volume 7.2 fL (7.4-10.4); Platelet Count 215 10^3/uL (150-450)
[2019-05-12] MEDS: Acetaminophen TAB* 325 MG PO SCH ×2 (06:02→13:49)
[2019-05-12 06:18] LABS: BUN/Creatinine Ratio 15.1 (8-20); Calcium 8.9 mg/dL (8.6-10.3); EGFR African American 85.7 (>60); EGFR Non-African American 70.8 (>60); Potassium 4.2 mmol/L (3.5-5.0)
--- NOTE | 2019-05-12 08:32 | PN ---
Subjective - Subjective Reason for Note: Consultation Note History: Internal medicine/primary care: Day 1 post right total knee arthroplasty. He is walking with physical therapy as I enter. I walk alongside as he walks out of his room, across the armenta to the rehabilitation room. He walks with a normal gabrielle and shows no limp. He is tolerating the pain well. He has had no problems with the procedure or post operative period. He is eating/drinking. He has passed flatus, but since his Martinez catheter was removed he has not yet voided. He denies chest pain, palpitations, dypsnea. He has no cough/sputum. Active Problems: Active Problems History of arthroplasty of right knee (Acute) Z96.651 Ankylosing Spondylosis (Chronic 11/14/13) Deep venous thrombosis of right femoral vein (Chronic 11/14/13) I82.411 Essential hypertension (Chronic) I10 Hypercholesterolemia (Chronic) E78.00 Hypertriglyceridemia (Chronic 11/14/13) E78.1 Hypogonadism male (Chronic 11/14/13) E29.1 Obesity (BMI 35.0-39.9 without comorbidity) (Chronic 11/14/13) E66.01 Sleep apnea (Chronic) G47.30 Current Medications: Current Medications Acetaminophen (Tylenol Tab*) 975 mg PO Q8HR [facility] Last Admin: 05/12/19 06:02 Dose: Not Given Bisacodyl (Dulcolax Supp*) 10 mg RI DAILY PRN PRN Reason: CONSTIPATION Bupropion HCl (Wellbutrin Xl *) 150 mg PO QAM [facility] Bupropion HCl (Wellbutrin Tab*) 75 mg PO 1400 [facility] Cyclobenzaprine HCl (Flexeril Tab*) 10 mg PO Q6H PRN PRN Reason: SPASMS Last Admin: 05/11/19 20:16 Dose: 10 mg Diphenhydramine HCl (Benadryl Iv*) 25 mg IV Q6H PRN PRN Reason: PRURITIS Diphenhydramine HCl (Benadryl Po*) 25 mg PO Q6H PRN PRN Reason: PRURITIS Docusate Sodium (Colace Cap*) 100 mg PO BID [facility] Last Admin: 05/11/19 20:16 Dose: 100 mg Duloxetine HCl (Cymbalta Cap*) 60 mg PO QAM [facility] Hydrochlorothiazide (Hydrodiuril Tab*) 25 mg PO QAM [facility] Cefazolin Sodium 1 gm/ Sodium (Chloride) 50 mls @ 200 mls/hr IVPB Q8H [facility] Stop: 05/12/19 14:14 Last Admin: 05/12/19 05:52 Dose: 200 mls/hr Lactated Ringer's (Lactated Ringers 1000 Ml Bag*) 1,000 mls @ 100 mls/hr IV PER RATE [facility] Last Admin: 05/12/19 05:52 Dose: 100 mls/hr Lactulose (Lactulose*) 30 ml PO BID PRN PRN Reason: CONSTIPATION Losartan Potassium (Cozaar Tab*) 100 mg PO QAM [facility] Magnesium Hydroxide (Milk Of Magnesia Liq*) 30 ml PO BID [facility] Last Admin: 05/11/19 20:16 Dose: 30 ml Magnesium Hydroxide (Milk Of Magnesia Liq*) 30 ml PO Q6H PRN PRN Reason: CONSTIPATION Morphine Sulfate (Morphine Inj (Syringe))*) 2 mg IV Q4H PRN PRN Reason: Pain - Unrelieved Multivitamins (Theragran Tab*) 1 tab PO DAILY [facility] Ondansetron HCl (Zofran Inj*) 4 mg IV Q6H PRN PRN Reason: NAUSEA Ondansetron HCl (Zofran Odt Tab*) 4 mg PO Q6H PRN PRN Reason: NAUSEA Ondansetron HCl (Zofran Tab*) 4 mg PO Q6H PRN PRN Reason: NAUSEA Oxycodone HCl (Roxycodone Tab*) 10 mg PO Q4H PRN PRN Reason: Pain - Breakthrough Oxycodone/Acetaminophen (Percocet 5/325 Tab*) 2 tab PO Q4H PRN PRN Reason: PAIN - SEVERE Last Admin: 05/12/19 05:52 Dose: 2 tab Polyethylene Glycol/Electrolytes (Miralax (17 Gm Dose Martin)) 17 gm PO DAILY PRN PRN Reason: Constipation Prednisone (Deltasone 5 Mg Tab) 2.5 mg PO QAM [facility] Rivaroxaban (Xarelto(*)) 20 mg PO DAILY [facility] Testosterone (Testosterone Gel 25 Mg/2.5 G) 75 mg TOPICAL QAM [facility] Tramadol HCl (Ultram*) 50 mg PO Q6H PRN PRN Reason: PAIN - MODERATE Home Medications: Home Medications Medication Instructions Recorded Confirmed Type DULoxetine CAP* [Cymbalta CAP*] 60 mg PO QAM 12/08/11 05/11/19 History Testosterone GEL (NF) [Androgel 75 mg TOPICAL QAM 12/08/11 05/11/19 History (NF)] Hydrochlorothiazide TAB* 25 mg PO QAM 11/29/15 05/11/19 History [Hydrodiuril TAB*] Ibuprofen TAB* [Motrin TAB* 400 MG] 800 mg PO Q6H PRN #0 tab 12/02/15 05/11/19 Rx Cholecalciferol CAP/TAB(NF) 2,000 unit PO QAM 01/20/19 05/11/19 History [Vitamin D3 CAP/TAB (NF)] Glucosamine CAP (NF) 1,000 cap PO BID 01/20/19 05/11/19 History Losartan TAB* [Cozaar TAB*] 100 mg PO QAM 01/20/19 05/11/19 History Methylphenidate HCl 20 mg PO QPM 01/20/19 05/11/19 History [Methylphenidate LA] Rivaroxaban TAB(*) [Xarelto 20 mg] 20 mg PO QAM 01/20/19 05/11/19 History buPROPion TAB* [Wellbutrin TAB*] 75 mg PO QPM 01/20/19 05/11/19 History predniSONE 5 mg TAB [Deltasone 2.5 mg PO QAM 01/20/19 05/11/19 History TAB*] Niacin ER CAP* [Niaspan ER CAP*] 1,000 mg PO BID 04/28/19 05/11/19 History Lovenox 05/11/19 History buPROPion HCl [Bupropion Xl] 150 mg PO DAILY 05/11/19 05/11/19 History Allergies: Allergies Allergy/AdvReac Type Severity Reaction Status Date / Time No Known Allergies Allergy Verified 05/11/19 11:35 Objective - Vital Signs Vital Signs: Vital Signs 05/11/19 05/11/19 05/11/19 11:40 16:35 16:40 Temperature 98.6 F 97.3 F Pulse Rate 80 95 97 Respiratory 16 18 18 Rate Blood Pressure 148/94 126/93 138/89 (mmHg) O2 Sat by Pulse 96 91 100 Oximetry 05/11/19 05/11/1920 17:01 17:05 17:10 Temperature Pulse Rate Respiratory 16 18 18 Rate Blood Pressure (mmHg) O2 Sat by Pulse Oximetry 05/11/19 05/11/19 05/11/19 17:15 17:35 18:29 Temperature 97.3 F 97.1 F Pulse Rate 101 103 105 Respiratory 18 18 16 Rate Blood Pressure 123/82 115/76 108/67 (mmHg) O2 Sat by Pulse 100 97 94 Oximetry 05/11/19 05/11/19 05/11/19 18:38 19:41 20:15 Temperature 97.7 F Pulse Rate 104 Respiratory 20 20 18 Rate Blood Pressure 117/60 (mmHg) O2 Sat by Pulse 94 Oximetry 05/11/19 05/11/19 05/11/19 20:16 20:30 20:32 Temperature 97.3 F Pulse Rate 103 Respiratory 18 18 18 Rate Blood Pressure 100/55 (mmHg) O2 Sat by Pulse 94 Oximetry 05/11/19 05/12/19 05/12/19 22:43 00:35 00:59 Temperature 98.1 F 98.9 F Pulse Rate 102 99 Respiratory 16 18 Rate Blood Pressure 137/66 135/71 (mmHg) O2 Sat by Pulse 95 92 92 Oximetry 05/12/19 05/12/19 05/12/19 01:03 03:14 03:57 Temperature 99.1 F Pulse Rate 93 Respiratory 18 14 17 Rate Blood Pressure 120/67 (mmHg) O2 Sat by Pulse 95 Oximetry 05/12/19 05/12/19 05/12/19 05:52 07:31 07:39 Temperature 98.8 F Pulse Rate 86 Respiratory 16 16 16 Rate Blood Pressure 101/64 (mmHg) O2 Sat by Pulse 94 94 Oximetry - Intake and Output Intake and Output: Intake & Output 05/09/19 05/10/19 05/11/19 05/12/19 11:59 11:59 11:59 11:59 Intake Total 5028 Output Total 2245 Balance 2783 Weight 370 lb Intake: IV Fluids 3330 LR 3280 NS 50ML, Cefazolin 2G 50 IVPB 58 ABX - CEFAZOLIN 58 Oral 1640 Output: Martinez 2125 Estimated Blood Loss 120 ADLs: Meal Record Start: 05/11/19 18: 38 Freq: Status: Active Protocol: Created 03/12/20 18:38 [id number] (Rec: 05/11/19 18:38 [id number]) Intake and Output Start: 05/11/19 18: 38 Freq: DAILY@0600,1400,2200 Status: Active Protocol: Created 05/11/19 18:38 [id number] (Rec: 05/11/19 18:38 [id number]) Document 05/11/19 22:39 [id number] (Rec: 05/11/19 22:43 [id number]) Document 05/12/19 03:57 [id number] (Rec: 05/12/19 03:57 [id number]) Document 05/12/19 05:21 [id number] (Rec: 05/12/19 05:25 [id number]) Document 05/12/19 06:04 [id number] (Rec: 05/12/19 06:04 [id number]) - Physical Exam General Physical Exam Comment: warm and well perfused, hemodynamically stable General: No Cyanosis, No Anemia, No Jaundice, No Clubbing Lungs and Chest: Yes: Chest Expansion Full, Chest Expansion Symetrica, Percussion Note Resonant, Vessicular Breath Sounds. No: Crackles, Wheezes Heart Rate and Rhythm: Regular Additional Cardiovascular: Yes: Normal Heart Sounds. No: Heart Murmur Results - Results Lab Results: Laboratory Results - last 24 hr 05/11/19 05/12/19 05/12/19 12:00 05:32 05:32 Hgb 13.1 L Hct 39 L Plt Count 215 MPV 7.2 L INR (Anticoag Therapy) 0.98 APTT 34.8 Sodium 136 Potassium 4.2 Chloride 98 L Carbon Dioxide 31 Anion Gap 7 BUN 16 Creatinine 1.06 Est GFR ( Amer) 85.7 Est GFR (Non-Af Amer) 70.8 BUN/Creatinine Ratio 15.1 Glucose 121 H Calcium 8.9 Assessment - Problem List Assessment: Patient Problems History of arthroplasty of right knee (Acute) Ankylosing Spondylosis (Chronic 11/14/13) Deep venous thrombosis of right femoral vein (Chronic 11/14/13) Essential hypertension (Chronic) Hypercholesterolemia (Chronic) Hypertriglyceridemia (Chronic 11/14/13) Hypogonadism male (Chronic 11/14/13) Obesity (BMI 35.0-39.9 without comorbidity) (Chronic 11/14/13) Sleep apnea (Chronic) Plan: History of arthroplasty of right knee (Acute) 1 day post operative. He is doing very well - walking independently. He has no hemodynamic, respiratory or other blood loss problems following the surgery and requires no general medical intervention Comorbidities: Deep venous thrombosis of right femoral vein (Chronic 11/14/13) History of pulmonary embolism - He will restart rivaroxaban today. Secondary diagnosis: Ankylosing Spondylosis (Chronic 11/14/13) Essential hypertension (Chronic) Hypercholesterolemia (Chronic) Hypertriglyceridemia (Chronic 11/14/13) Hypogonadism male (Chronic 11/14/13) Obesity (BMI 35.0-39.9 without comorbidity) (Chronic 11/14/13) Sleep apnea (Chronic) From the medical point of view he can be discharged today.
[2019-05-12] MEDS: Magnesium Hydroxide LIQ* 30 ML UDC PO SCH (08:48)
[2019-05-12] MEDS: Docusate CAP* 100 MG PO SCH (08:48)
[2019-05-12] MEDS ORDERED: CMC:TESTOSTERONE GEL 25 MG (NF) IN 2.5 GM SIZE PACKET TOPICAL SCH (09:00)
[2019-05-12] MEDS ORDERED: Hydrochlorothiazide TAB* 25 MG PO SCH (09:00)
[2019-05-12] MEDS ORDERED: BuPROPion XL* 150 MG TAB.XL PO SCH (09:00)
[2019-05-12] MEDS ORDERED: Losartan TAB* 25 MG PO SCH (09:00)
[2019-05-12] MEDS ORDERED: Vitamin THERAPEUTIC TAB PO SCH (09:00)
[2019-05-12] MEDS ORDERED: Rivaroxaban TAB(*) 20 MG TAB PO SCH (09:00)
[2019-05-12] MEDS ORDERED: DULoxetine DR CAP* 30 MG CAP.DR PO SCH (09:00)
[2019-05-12] MEDS ORDERED: Ibuprofen TAB* 400 MG PO PRN (09:36)
--- NOTE | 2019-05-12 10:06 | PN ---
Progress Note - Progress Note Date of Service: 05/12/19 SOAP: Subjective: Pt was seen this morning sitting up in bed. States that he is doing well. Pain is under control. Has done well with PT this morning. Has done the stairs also. He denies any chest pain, SOB, nausea or vomiting. He would like to go home tonight. Objective: [General: Pt is alert and oriented x3. NAD MSK, RLE: Dressing is c/d/i. Dressing changed today, incision is c/d/i. No drainage or erythema. +df/pf, calf soft and non tender. 2+ DP pulse. Vital Signs Temp 98.8 F 05/12/19 07:31 Pulse 86 05/12/19 07:31 Resp 20 05/12/19 07:39 BP 101/64 05/12/19 07:31 Pulse Ox 94 05/12/19 07:39 Intake & Output 05/11/19 05/12/19 05/12/19 18:59 06:59 18:59 Intake Total 2890 1100 1038 Output Total 195 2050 Balance 2695 -950 1038 Weight 370 lb Intake: IV Fluids 2350 980 LR 2300 980 NS 50ML, Cefazolin 2G 50 IVPB 58 ABX - CEFAZOLIN 58 Oral 540 1100 Output: Martinez 75 2050 Estimated Blood Loss 120 ] Assessment: [POD 1 RTKA ] Plan: [Pt does have a chronic DVT. He will remain on Xarelto 20 mg q day Pt would like to take Ibuprofen 400mg bid. He states that he is on this amount at home and does very well with it. This was ordered PT Pt will be discharged home today after second PT session. ]
--- NOTE | 2019-05-12 10:14 | DS ---
Orthopedic Discharge Summary - Discharge Summary Date of Admission:05/11/19 Date of Discharge: 05/12/2019 Date of Surgery: 05/11/2019 Attending Orthopedic Provider: Dr. Almendarez Pre-operative Diagnosis: Right knee osteoarthritis Operative Procedure: Right total knee replacement Disposition of Patient: Home Home care vs Outpatient services: Home care Condition of Patient: Good Pain medication RX at discharge: Percocet 5/325 DVT prophylaxis RX at discharge: Xarelto 20mg History: BETINA RINALDI is a 63 year old M with years of increasingly severe right knee pain. Patient has failed conservative management and has elected to undergo a right total knee replacement Hospital Course: BETINA was admitted to [facility] on 05/11/19. Patient underwent a right total knee replacement without complication followed by a brief recovery in PACU and transfer to the Short Stay Surgical Unit in stable condition. Our hospitalist service, physical therapy and occupational therapy also participated in this patients care. Post-op day 1: patient was alert and in no acute distress. Dressing was clean, dry and intact. Operative extremity dorsiflexion and plantarflexion intact, sensation intact to light touch distally, DP2+. Dressing was changed, incision was clean, dry and intact. Patient was deemed to be medically and orthopedically stable for discharge. Physical therapy goals were met. Home Medications Medication Instructions Recorded Confirmed Type DULoxetine DR CAP* [Cymbalta CAP*] 60 mg PO QAM 12/08/11 05/11/19 History Testosterone GEL (NF) [Androgel 75 mg TOPICAL QAM 12/08/11 05/11/19 History (NF)] Hydrochlorothiazide TAB* 25 mg PO QAM 11/29/15 05/11/19 History [Hydrodiuril TAB*] Ibuprofen TAB* [Motrin TAB* 400 MG] 800 mg PO Q6H PRN #0 tab 12/02/15 05/11/19 Rx Cholecalciferol CAP/TAB(NF) 2,000 unit PO QAM 01/20/19 05/11/19 History [Vitamin D3 CAP/TAB (NF)] Glucosamine CAP (NF) 1,000 cap PO BID 01/20/19 05/11/19 History Losartan TAB* [Cozaar TAB*] 100 mg PO QAM 01/20/19 05/11/19 History Methylphenidate HCl 20 mg PO QPM 01/20/19 05/11/19 History [Methylphenidate LA] Rivaroxaban TAB(*) [Xarelto 20 mg] 20 mg PO QAM 01/20/19 05/11/19 History buPROPion TAB* [Wellbutrin TAB*] 75 mg PO QPM 01/20/19 05/11/19 History predniSONE 5 mg TAB [Deltasone 5 2.5 mg PO QAM 01/20/19 05/11/19 History mg TAB] Niacin ER CAP* [Niaspan ER CAP*] 1,000 mg PO BID 04/28/19 05/11/19 History Lovenox 05/11/19 History buPROPion HCl [Bupropion Xl] 150 mg PO DAILY 05/11/19 05/11/19 History oxyCODONE/Acetamin 5/325 MG* 2 tab PO Q4H PRN tab 05/12/19 Rx [Percocet 5/325 TAB*] Discharge Instructions following Orthopedic Surgery: Activity: * Weight Bearing as tolerated * Continue physical therapy and occupational therapy exercises as shown * If you have elected to have home physical therapy, continue therapy exercises at home. If you have elected outpatient physical therapy, please start therapy as an outpatient right away. Wound care: * OK to shower on post-op day 3, no bathing, swimming, or submerging wound. * Use gentle soap, pat dry. Cover with gauze, EUGENE wrap or tape. * If you elected to have a visiting home nurse, they will perform wound checks. Call Orthopedic office for: * Increased drainage * Redness * Increased pain * Fever Go to ER with shortness of breath or chest pain. Diet: * Regular diet * Increase fluids and fiber to prevent constipation. * Continue to use stool softeners, call office if no bowel motion within 48 hours. Medications See Home Medication List in your packet for medications that you should take after discharge. DVT Prophylaxis: Xarelto Dosin mg daily x 30 days Pain Control: Percocet 5/325 mg 1 tab for moderate pain and 2 tabs for severe pain by mouth every 4 hours as needed. Maximum of 10 tabs per day. Hold for sedation , wean off as soon as pain allows Please note that Percocet contains Tylenol (acetaminophen). Maximum daily dose of Tylenol is 4000 mg from all sources. Antibiotics are required prior to any dental work. FOLLOW UP: Follow up with Dr. Almendarez Within 10 - 14 days, call for appointment Please call our office with any questions or concerns ([phone])
[2019-05-12 11:43] VITALS: BP 115/61
[2019-05-12] MEDS ORDERED: buPROPion TAB* 75 MG PO SCH (14:00)
== END 2019-05-12 14:29 | disposition home or self-care (01) | DRG 302 ==
LOC: AA 10:56 → SSU 16:29
PROVIDERS: ADMIT Orthopaedic Surgery Adult Reconstructive Orthopaedic Surgery; ATTEND Orthopaedic Surgery Adult Reconstructive Orthopaedic Surgery
PROC: 0SRC069 Replacement of Right Knee Joint with Oxidized Zirconium on Polyethylene Synthetic Substitute, Cemented, Open Approach (ICD-10-PCS; principal; 2019-05-11 14:00)
DX: M17.11 Unilateral primary osteoarthritis, right knee (principal); I82.509 Chronic embolism and thrombosis of unspecified deep veins of unspecified lower extremity; I82.511 Chronic embolism and thrombosis of right femoral vein; Z68.42 Body mass index [BMI] 45.0-49.9, adult; E78.00 Pure hypercholesterolemia, unspecified; M06.9 Rheumatoid arthritis, unspecified; I10 Essential (primary) hypertension; M48.10 Ankylosing hyperostosis [Forestier], site unspecified; M45.9 Ankylosing spondylitis of unspecified sites in spine; M25.461 Effusion, right knee; E78.1 Pure hyperglyceridemia; E29.1 Testicular hypofunction; E66.9 Obesity, unspecified; G47.30 Sleep apnea, unspecified; F32.9 Major depressive disorder, single episode, unspecified; M25.761 Osteophyte, right knee; Z79.899 Other long term (current) drug therapy; Z79.52 Long term (current) use of systemic steroids; Z86.718 Personal history of other venous thrombosis and embolism; Z86.711 Personal history of pulmonary embolism
CPT/HCPCS: 36415; 80048; 85014; 85018; 85049; 85610; 85730; 88305; 88311; A9270-GY; C1776; J0690; J1100; J1720; J2250; J2405; J2704; J2795; J3010; J7512

== ENCOUNTER 2019-06-13 11:54 | Emergency (ER) | payer BC ==
--- NOTE | 2019-06-13 12:17 | ED ---
HPI Cardiac - HPI Summary HPI Summary: 63 year old M presenting to [facility] with a chief complaint of feeling his heart skipping a beat since this morning. The patient denies pain but is aware it is happening. Has taken pulse - has not been fast. Patient reports a history of an AV heart block "when I vagel" , pulmonary emboli - blood clots on xarelto, and a recent left knee surgery. Pt state his anticoagulation was bridged with lovenox at time of surgery. Patient denies any chest pain or shortness of breath. no diaphoresis. Pt states went to ortho appt today for knee - discussed palpitation - sent to ED for eval. Pt did have coffee this am. Slept poorly last night. Pt took percocet last night for knee, APAP this am. no OTC meds, decongestants. He states that he has had similar symptoms previously. He was seen by Dr. Almendarez today. Patient's medication reviewed this visit. Allergy list reviewed. Pt evaluated during COVID-19 pandemic- pt denies cough, sob, sore throat, fever , recent illness, contact with PUI/COVID + person - History of Current Complaint Chief Complaint: EDDysrhythmPalp Stated Complaint: GENERAL PER PT Time Seen by Provider: 06/13/19 12:10 Hx Obtained From: Patient Onset/Duration: Still Present Timing: Constant Aggravating Factor(s): Nothing Alleviating Factor(s): Nothing Associated Signs and Symptoms: Positive: Negative - Sore throat. Negative: Chest Pain, Shortness of Breath, Fever, Diaphoresis, Cough - Additional Pertinent History Primary Care Physician: [id number] - Allergy/Home Medications Allergies/Adverse Reactions: Allergies Allergy/AdvReac Type Severity Reaction Status Date / Time No Known Allergies Allergy Verified 06/06/19 12:01 Home Medications: Home Medications DULoxetine CAP* [Cymbalta CAP*] 60 mg PO DAILY 12/08/11 [History Confirmed ] Testosterone GEL (NF) [Androgel (NF)] 75 mg TOPICAL QAM 12/08/11 [History Confirmed 06/13/19] Hydrochlorothiazide TAB* [Hydrodiuril TAB*] 25 mg PO DAILY 11/29/15 [History Confirmed 06/13/19] Cholecalciferol CAP/TAB(NF) [Vitamin D3 CAP/TAB (NF)] 2,000 unit PO DAILY [History Confirmed 06/13/19] Losartan TAB* [Cozaar TAB*] 100 mg PO DAILY 01/20/19 [History Confirmed 06/13/19 ] Methylphenidate HCl [Methylphenidate LA] 20 mg PO DAILY 01/20/19 [History Confirmed 06/13/19] Rivaroxaban TAB(*) [Xarelto 20 mg] 20 mg PO DAILY 01/20/19 [History Confirmed ] buPROPion TAB* [Wellbutrin TAB*] 75 mg PO QPM 01/20/19 [History Confirmed ] predniSONE 5 mg TAB [Deltasone 5 mg TAB] 2.5 mg PO DAILY 01/20/19 [History Confirmed 06/13/19] buPROPion HCl [Bupropion Xl] 150 mg PO QAM 05/11/19 [History Confirmed 06/13/19] oxyCODONE/Acetamin 5/325 MG* [Percocet 5/325 TAB*] 2 tab PO Q4H PRN tab [Rx Confirmed 06/13/19] Dextroamphetamine/Amphetamine [Dextroamp-Amphetamin 20 mg Tab] 20 mg PO DAILY [History Confirmed 06/13/19] Diclofenac 1% GEL (NF) [Voltaren 1% GEL (NF)] 3 % TOPICAL BID 06/06/19 [History Confirmed 06/13/19] Diclofenac Sodium 1.5 % BOTH EYES . DIRECTED 06/06/19 [History Confirmed 06/12] Enoxaparin(*) [Lovenox(*)] 80 mg SUBCUT .PRIOR TO SURGERY 06/06/19 [History Confirmed 06/13/19] Ibuprofen TAB* [Motrin TAB* 400 MG] 400 mg PO Q6H PRN MDD 4 tabs 06/06/19 [ History Confirmed 06/13/19] Meclizine TAB* [Antivert 12.5 TAB*] 12.5 - 25 mg PO BID PRN 06/06/19 [History Confirmed 06/13/19] Sildenafil (NF) [Viagra (NF)] 100 mg PO DAILY 06/06/19 [History Confirmed ] PMH/Surg Hx/FS Hx/Imm Hx Endocrine/Hematology History: Reports: Other Endocrine/Hematological Disorders - Blood clots Denies: Hx Anticoagulant Therapy, Hx Blood Disorders, Hx Blood Transfusions, Hx Bone Marrow Disease, Hx Diabetes, Hx Systemic Lupus Erythematosus, Hx Sickle Cell Disease, Hx Thyroid Disease, Hx Anemia, Hx Unexplained Bleeding Cardiovascular History: Reports: Hx Hypertension Denies: Hx Aneurysm, Hx Angina, Hx Angioplasty, Hx Auto Implanted Cardiovert Defib, Hx Cardiac Arrest, Hx Cardiomegaly, Hx Congenital Heart Disease, Hx Congestive Heart Failure, Hx Coronary Artery Disease, Hx Deep Vein Thrombosis, Hx Hypercholesterolemia, Hx Hypotension, Hx Pacemaker/ICD, Hx Peripheral Vascular Disease, Hx Rheumatic Fever, Hx Syncope, Hx Valvular Heart Disease, Other Cardiovascular Problems/Disorders Respiratory History: Reports: Hx Asthma, Hx Pulmonary Embolism Denies: Hx Bronchopulmonary Dysplasia, Hx Chronic Bronchitis, Hx Chronic Obstructive Pulmonary Disease (COPD), Hx Cystic Fibrosis, Hx Lung Cancer, Hx Pleural Effusion, Hx Pneumonia, Hx Pulmonary Edema, Hx Seasonal Allergies, Hx Sleep Apnea, Other Respiratory Problems/Disorders GI History: Denies: Hx Cirrhosis, Hx Crohn's Disease, Hx Diverticulosis, Hx Gall Bladder Disease, Hx Gastroesophageal Reflux Disease, Hx Gastrointestinal Bleed, Hx Hiatal Hernia, Hx Irritable Bowel, Hx Jaundice, Hx Obstructive Bowel, Hx Ileostomy, Hx Pyloric Stenosis, Hx Ulcer, Other GI Disorders History: Denies: Hx Acute Renal Failure, Hx Benign Prostatic Hyperplasia, Hx Chronic Renal Failure, Hx Dialysis, Hx Kidney Infection, Hx Kidney Stones, Hx Renal Disease, Other Problems/Disorders Musculoskeletal History: Reports: Hx Arthritis, Hx Back Problems Denies: Hx Bursitis, Hx Congenital Bone Abnormalities, Hx Fibromyalgia, Hx Gout, Hx Orthopedic Injury, Hx Osteoporosis, Hx Scoliosis, Hx Tendonitis, Other Musculoskeletal History Sensory History: Reports: Hx Contacts or Glasses Denies: Hx Cataracts, Hx Eye Injury, Hx Eye Prosthesis, Hx Glaucoma, Hx Macular Degeneration, Hx Vision Problem, Hx Deafness, Hx Hearing Aid, Hx Hearing Problem, Other Sensory Impairments Opthamlomology History: Reports: Hx Contacts or Glasses Denies: Hx Cataracts, Hx Eye Injury, Hx Eye Prosthesis, Hx Glaucoma, Hx Macular Degeneration, Hx Vision Problem, Other Sensory Impairments Neurological History: Reports: Hx Headaches, Hx Nerve Disease - STENOSIS IN BACK , Other Neuro Impairments/Disorders - STATES "VERTIGO ONCE A YEAR" Denies: Hx Dementia, Hx Developmental Delay, Hx Migraine, Hx Seizures, Hx Spinal Cord Injury, Hx Transient Ischemic Attacks (TIA) Psychiatric History: Reports: Hx Depression Denies: Hx Anxiety, Hx Attention Deficit Hyperactivity Disorder, Hx Autism, Hx Eating Disorder, Hx Oppositional Gordon Disorder, Hx Panic Disorder, Hx Post Traumatic Stress Disorder, Hx Inpatient Treatment, Hx Community Mental Health Tx, Hx Schizophrenia, Hx Bipolar Disorder, Hx Suicide Attempt, Other Psychiatric Issues/Disorders - Cancer History Hx Hematologic Symptoms: No Hx Chemotherapy: No Hx Radiation Therapy: No - Surgical History Surgical History: Yes Surgery Procedure, Year, and Place: I AND D SEROMA L HIP. I AND D HEMATOMA L HIP. Left knee Hx Anesthesia Reactions: No Infectious Disease History: No Infectious Disease History: Denies: Hx Clostridium Difficile, Hx Hepatitis, Hx Human Immunodeficiency Virus (HIV), Hx Shingles, Hx Tuberculosis, Traveled Outside the [place] in Last 30 Days - Family History Known Family History: Positive: Other - melanoma - Social History Occupation: Employed Full-time - Dentist Lives: With Family Alcohol Use: None Hx Substance Use: No Substance Use Type: Reports: None Substance Use Comment - Amount & Last Used: 2 LG CUPS COFFEE ( 14 OZ EA) PER DAY Hx Tobacco Use: No Smoking Status (MU): Never Smoked Tobacco Review of Systems Constitutional: Negative Negative: Fever, Fatigue, Skin Diaphoresis Eyes: Negative ENT: Negative Negative: Sore Throat Positive: Other - Feeling heart skipping a beat. Negative: Chest Pain Negative: Shortness Of Breath, Cough Gastrointestinal: Negative Genitourinary: Negative Positive: Other - Left knee pain All Other Systems Reviewed And Are Negative: Yes Physical Exam - Summary Physical Exam Summary: Vital Signs Reviewed: Yes A+Ox3, no distress, speaking full easy sentences Eyes: Conjunctiva Clear, FIORELLA. EOM intact and full ENT: Hearing grossly normal TM x 2 clear, mmoist, uvula midline, no exudate, no erythema Neck: Positive: Supple Respiratory: Positive: No respiratory distress, No accessory muscle use + CTA throughout no w/r Cardiovascular: RRR, occasional early beat nl s1, s2 no m/r CBT <2 sec abd soft + BS nt/nd no guarding, no distension Musculoskeletal Exam: JORDAN x 4 without difficulty Strength Intact, ROM Intact + TTP right knee with edema - baseline per patient Neurological: Positive: Alert, + sensation throughout Psychological: Positive: Normal Response To examiner Skin: Positive: no rash, no ecchymosis Triage Information Reviewed: Yes Vital Signs On Initial Exam: Initial Vitals Temp Pulse Resp BP Pulse Ox 98.8 F 83 16 156/101 98 06/13/19 12:04 06/13/19 12:04 06/13/19 12:04 06/13/19 12:04 06/13/19 12:04 Vital Signs Reviewed: Yes Procedures - Sedation Patient Received Moderate/Deep Sedation with Procedure: No Diagnostics - Vital Signs Vital Signs Temp Pulse Resp BP Pulse Ox 06/13/19 12:04 98.8 F 83 16 156/101 98 - Laboratory Result Diagrams: 06/13/19 12:55 06/13/19 12:55 Lab Statement: Any lab studies that have been ordered have been reviewed, and results considered in the medical decision making process. - Radiology Chest x-ray Radiology Interpretation Completed By: Radiologist Summary of Radiographic Findings: NO ACTIVE CARDIOPULMONARY DISEASE. ED physician has reviewed this report. - CT Chest/Thorax CTA CT Interpretation Completed By: Radiologist Summary of CT Findings: Suboptimal opacification of the pulmonary arteries and motion artifact limits. the CT pulmonary angiogram. No compelling filling defects are identified within the main to segmental and where visible subsegmental pulmonary arteries to indicate pulmonary embolism. ED physician has reviewed this report. - EKG 11:58 Cardiac Rate: NL - 91 BPM EKG Rhythm: Sinus Rhythm Summary of EKG Findings: Occassional PACs; no ST, T Wave changes. ED physician has reviewed and interpreted this EKG. Re-Evaluation - Re-Evaluation First Eval Change: Improved - Pt states feels well decreased @ PAC requesting po reviewed labs, CT - aware some limitation related to motion BP improved will discharge -decrease caffine, hydrate f/u with PCP Disposition - Course Course Of Treatment: Patient is a 63-year-old gentleman presents to urgent care reporting his feeling extra beats. Upon evaluation patient denies chest pain or shortness of breath. Patient denies nausea vomiting. Patient states he didnot sleep well last night and had a cup of coffee this morning. Little food . Patient has ongoing issues with his right knee status post surgery. Patient does have a history of DVT and PE for which he is on xarelto. Patient states he was bridged with Lovenox perioperatively and has resumed Xarelto. Patient reports a negative right lower extremity DVT study within the last week. EKG shows patient does have PACs. Patient is symptomatic with them. They're every fourth to fifth beat. Patient without any other concerning changes on his EKG. We'll check labs including magnesium potassium. We'll give IV fluid. With CTA. Office negative anticipate discharge. Patient comfortable in agreement with plan. Patient does not have any chest pain or feel lightheaded. Pt does have elevated BP - history of same - Diagnoses Provider Diagnoses: PAC (premature atrial contraction), Palpitations Discharge ED - Sign-Out/Discharge Documenting (check all that apply): Patient Departure - Discharge Plan Condition: Stable Disposition: HOME Patient Education Materials: Premature Atrial Contractions (ED) Referrals: Anthony Sky MD [Primary Care Provider] - Additional Instructions: - stay well hydrated - drink plenty of non-alcoholic, non-caffinated beverages - eat and drink regular, healthy meals - get restful sleep - contact your primary care doctor to schedule a follow-up appointment. If you have increased or worsening symptoms, shortness of breath, lightheadedness, chest pain or any other concerns it is recommended you contact your doctor, return here, or dial 911 - Billing Disposition and Condition Condition: STABLE Disposition: Home - Attestation Statements Document Initiated by Scribe: Yes Documenting Scribe: Trista Stokes Provider For Whom Veronique is Documenting (Include Credential): Georgia Rico MD Scribe Attestation: Trista Fraire, scribed for Georgia Rico MD on 06/13/19 at 1716. Scribe Documentation Reviewed: Yes Provider Attestation: The documentation as recorded by the Trista shabazz accurately reflects the service I personally performed and the decisions made by me, Georgia Rico MD Status of Scribe Document: Viewed
[2019-06-13] MEDS ORDERED: NS 0.9% 1000 ML** 1,000 ML IV ONE (12:42)
[2019-06-13 13:18] LABS: ABS Eosinophils 0.1 10^3/ul (0-0.6); ABS Lymphocytes 1.4 10^3/ul (1.0-4.8); ABS Monocytes 0.8 10^3/ul (0-0.8); ABS Neutrophils 5.8 10^3/ul (1.5-7.7); Eosinophil % 0.7 %; Hematocrit 43 % (42-52); Hemoglobin 14.1 g/dL (14.0-18.0); Lymphocyte % 16.9 %; Mean Corpuscular HGB Conc 33 g/dL (31-36); Mean Corpuscular Hemoglobin 31 pg (27-31); Mean Corpuscular Volume 95 fL (80-94); Mean Platelet Volume 6.6 fL (7.4-10.4); Nucleated Red Blood Cells % 0.1; Platelet Count 297 10^3/uL (150-450); Red Cell Distribution Width 15 % (10-15); White Blood Count 8.1 10^3/uL (3.5-10.8)
--- OUTSIDE RECORDS SUMMARY | 2019-06-13 13:34 | XMS REPORT | Continuity of Care Document ---
:1955 External Reference #:[id number] Author Name Tanya Almendarez M.D. (transmitted by agent of provider Tegan Lopez) Address [address] [place] [address] Care Team Providers Name Role Phone Anthony Sky MD - Endocrinology, Care Team Information W[employer] Coating Machine Tender [phone] Diabetes & Metabolism [facility] [employer] Machine Operator Care Team Information Wax Coating Machine Tender [phone] Problems Active Problems Provider Date Rheumatoid arthritis [...] Use Denies Drug Use Smoking Status Reviewed: 04/14/20 Patient has never smoked Exercise Type/Frequency Does not exercise Allergies, Adverse Reactions, Alerts Description No Known Drug Allergies Medications Active Medications SIG Qnty Indications Ordering Date Provider Xarelto 1 tab daily. 30tabs Tanya Almendarez, 06/07/2019 15mg Tablets future refills M.D. from Dr Law Cai Prefilled inject 400 mg M45.0 Stef Quintana, 05/24/2019 2X 200 mg/ML under the skin M.D. Kit at weeks 0,2, and 4 then 200 mg under the skin every 2 weeks Percocet 1 tab by mouth 15tabs Tanya Almendarez, 05/12/2019 5-325mg Tablets every 4 - 6 M.D. hours as needed for post op pain. Ra Vitamin D-3 take 1 capsule 90caps Stef Quintana, 05/26/2017 2000Unit by mouth once M.D. Capsules daily Losartan Potassium 1 by mouth 90tabs Gerald Chowdary, 11/08/2013 100mg every day M.D. Tablets Androgel apply 5 gm 30daysup Unknown 50mg/5GM Gel daily Methylphenidate HCL ER prn Unknown 20mg Xarelto by mouth qd Unknown 20mg Tablets Hydrochlorothiazide 1 by mouth Unknown 25mg every day Tablets Diclofenac Sodium 3 crams Unknown 3% Gel topically 2-4 times a day as needed Meclizine HCL 1-2 tab two Unknown 12.5mg Tablets times a day prn Bupropion HCL Agnieszka Saab, 75mg Tablets Prednisone Agnieszka Saab, 2.5mg Tablets History Medications Tramadol HCL 1-2 tablets by mouth 12tabs Tanya Almendarez, 06/09/2019 - 50mg every 4- 6 hours as M.D. 06/09/2019 Tablets needed pain. max 4 per day Lovenox inject 1 prefilled 5units Tanya Almendarez, 05/01/2019 - syringe subcutaneous M.D. 05/23/2019 40mg/0.4ML daily for 5 days Solution Medications Administered in Office Medication SIG Qnty [...] Code Status Date Vaccine Reaction Lot # [id number] Given 09/15/2017 Pneumococcal Conjugate no immediate reaction [id number] Vaccine 13 Valent For noted Intramuscular Use Vital Signs Date Vital Result Comment 06/13/2019 11:26am Height 76 inches 6'4" Weight 265.00 lb Heart Rate 50 /min BP Systolic 178 mmHg BP Diastolic 80 mmHg Body Temperature 98.9 F BMI (Body Mass Index) 32.3 kg/m2 06/02/2019 1:13pm Height 76 inches 6'4" Weight 265.00 lb Heart Rate 65 /min BP Systolic 138 mmHg BP Diastolic 70 mmHg Body Temperature 99.7 F Pain Level 7 BMI (Body Mass Index) 32.3 kg/m2 Results Test Acquired Date Facility Test Result H/L Range Note Inr/Protime 04/28/2019 [facility] Inr 1.29 High 0.82-1.09 1, [address] [place] [address] [phone] Laboratory test 04/28/2019 [facility] Partial 41.2 seconds High 26.0-38.[address] [address] PTT [phone] Type & Screen 04/28/2019 [facility] Patient O Positive [address] [address] [phone] Antibody Screen NEGATIVE 1 PAIN IN RIGHT KNEE, UNILATERAL PRIMARY OSTEOARTHRI 2 Standard intensity warfarin therapeutic range: 2.0-3.0 High intensity warfarin therapeutic range: 2.5-3.5 Procedures Date Code Description Status 05/11/2019 41897 TKR Total Knee Replacement Completed 05/11/2019 65423 TKR Total Knee Replacement Completed Medical Devices Description No Information Available Encounters Type Date Location Provider Dx Diagnosis Office Visit 03/29/2019 [facility] Tanya Almendarez, M25.561 Pain in right 9:30a at [place] M.DDavis knee M17.11 Unilateral primary osteoarthritis, right knee Assessments Date Code Description Provider 06/02/2019 R22.41 Localized swelling, mass and lump, right Tanya Almendarez M.D. lower limb 06/02/2019 Z47.1 Aftercare following joint replacement Tanya Almendarez M.D. surgery 06/02/2019 Z96.651 Presence of right artificial knee joint Tanya Almendarez M.D. 05/24/2019 M25.561 Pain in right knee Chantelle Hemphill PA-C 05/24/2019 M17.11 Unilateral primary osteoarthritis, right Chantelle Hemphill PA-C knee 05/24/2019 Z96.651 Presence of right artificial knee joint Chantelle Hemphill PA-C 05/24/2019 Z47.1 Aftercare following joint replacement EMELINA Cuenca surgery 05/11/2019 M17.11 Unilateral primary osteoarthritis, right EMELINA Rizo knee 05/11/2019 M17.11 Unilateral primary osteoarthritis, right Tanya Almendarez M.D. knee 05/01/2019 M25.561 Pain in right knee Tanya Almendarez M.D. 05/01/2019 M17.11 Unilateral primary osteoarthritis, right Tanya Almendarez M.D. knee 03/29/2019 M25.561 Pain in right knee Tanya Almendarez M.D. 03/29/2019 M17.11 Unilateral primary osteoarthritis, right Tanya Almendarez M.D. knee Plan of Treatment Future Appointment(s):06/14/2019 10:30 am - Tanya Almendarez M.D. at [facility]07/05/2019 8:45 am - Tanya Almendarez M.D. at [facility] Functional Status Description No Information Available Mental Status Description No Information Available Referrals Refer to Dr Reason for Referral Status Appt Date Mohini Sahu MD workup for possible TKA; prior blood clot Closed 2019 [address] [place] [id number] [phone]
[2019-06-13 13:39] LABS: Troponin I 0.01 ng/mL (<0.03)
[2019-06-13 13:42] LABS: Albumin 4.2 g/dL (3.2-5.2); Albumin/Globulin Ratio 1.5 (1-3); BUN/Creatinine Ratio 23.7 (8-20); Calcium 9.1 mg/dL (8.6-10.3); EGFR African American 94.9 (>60); EGFR Non-African American 78.4 (>60); Globulin 2.8 g/dL (2-4); Magnesium 1.9 mg/dL (1.9-2.7); Potassium 4.3 mmol/L (3.5-5.0); Total Bilirubin 0.9 mg/dL (0.2-1.0)
[2019-06-13] MEDS ORDERED: Iohexol 350* (CONTRAST) 500 ML MDV IV ONE (13:54)
[2019-06-13 13:58] LABS: TSH (Thyroid Stimulating Horm) 1.98 mcIU/mL (0.34-5.60)
[2019-06-13 14:08] VITALS: BP 167/94
== END 2019-06-13 14:50 | disposition home or self-care (01) ==
LOC: ED 11:54
DX: I49.1 Atrial premature depolarization (principal); R00.2 Palpitations; I10 Essential (primary) hypertension; F32.9 Major depressive disorder, single episode, unspecified; Z86.711 Personal history of pulmonary embolism; Z79.899 Other long term (current) drug therapy; Z79.01 Long term (current) use of anticoagulants; Z87.828 Personal history of other (healed) physical injury and trauma; R94.31 Abnormal electrocardiogram [ECG] [EKG]
CPT/HCPCS: 36415; 71045; 71275; 80053; 83735; 84443; 84484; 85025; 93005; 96360; 99283; Q9967

== ENCOUNTER 2021-03-03 09:45 | Observation (INO) ==
[2021-03-03 10:53] LABS: ABS Basophils 0.1 10^3/ul (0-0.2); ABS Eosinophils 0.3 10^3/ul (0-0.6); ABS Lymphocytes 1.3 10^3/ul (1.0-4.8); ABS Monocytes 0.7 10^3/ul (0-0.8); ABS Neutrophils 5.3 10^3/ul (1.5-7.7); Eosinophil % 3.5 %; Hematocrit 55 % (42-52); Lymphocyte % 16.4 %; Mean Corpuscular HGB Conc 33 g/dL (31-36); Mean Corpuscular Hemoglobin 31 pg (27-31); Mean Corpuscular Volume 93 fL (80-94); Mean Platelet Volume 7.1 fL (7.4-10.4); Nucleated Red Blood Cells % 0.1; Platelet Count 281 10^3/uL (150-450); Red Blood Count 5.88 10^6 /uL (4.18-5.48); Red Cell Distribution Width 14 % (10-15); White Blood Count 7.6 10^3/uL (3.5-10.8)
[2021-03-03 11:06] LABS: Albumin 4.4 g/dL (3.2-5.2); CO2 Carbon Dioxide 36 mmol/L (22-32); Chloride 99 mmol/L (101-111); Sodium 138 mmol/L (135-145)
[2021-03-03 11:12] LABS: ALT 23 U/L (7-52); Albumin/Globulin Ratio 1.3 (1-3); Alkaline Phosphatase 58 U/L (35-149); Blood Urea Nitrogen 22 mg/dL (6-24); Globulin 3.3 g/dL (2-4); Glucose 65 mg/dL (70-100); Total Protein 7.7 g/dL (6.4-8.9); eGFR CKD-EPI 70.3 (>60)
[2021-03-03 11:14] LABS: Troponin I 0.07 ng/mL (<0.03)
[2021-03-03] MEDS ORDERED: Lactated Ringers 1000 ml BAG 1,000 ML IV ONE (11:17)
[2021-03-03 12:19] LABS: Anion Gap 3 mmol/L (2-11)
[2021-03-03 13:57] LABS: TSH Ultra Thyroid Stim Horm 2.29 mcIU/mL (0.34-5.60)
[2021-03-03 13:59] LABS: Free T4 0.77 ng/dL (0.61-1.12)
[2021-03-03 14:14] LABS: Troponin I 0.06 ng/mL (<0.03)
[2021-03-03 14:20] LABS: Magnesium 1.8 mg/dL (1.9-2.7); Potassium Redraw 4.3 mmol/L (3.5-5.0)
[2021-03-03] MEDS ORDERED: Magnesium Sulfate 2 gm BAG 2 GM/50 ML BAG IVPB ONE (14:34)
[2021-03-03 14:46] LABS: AST Redraw 20 U/L (13-39)
[2021-03-03] MEDS ORDERED: Enoxaparin 100 MG/ML SYR SUBCUT ONE (16:59)
[2021-03-03] MEDS ORDERED: METHYLPHENIDATE HCL 20 MG PO SCH (21:00)
[2021-03-04 05:34] LABS: Calcium 8.9 mg/dL (8.6-10.3); Potassium 4.1 mmol/L (3.5-5.0); eGFR CKD-EPI 63.7 (>60)
[2021-03-04 07:50] LABS: Magnesium 2.1 mg/dL (1.9-2.7)
[2021-03-04] MEDS ORDERED: Regadenoson 0.4 MG/5 ML SYRINGE ONE (07:55)
[2021-03-04] MEDS ORDERED: Aminophylline 25 MG/ML VIAL ONE (07:55)
[2021-03-04] MEDS ORDERED: METHYLPHENIDATE HCL 20 MG PO SCH (09:00)
[2021-03-04] MEDS ORDERED: DULoxetine DR 60 mg CAP PO SCH (09:00)
[2021-03-04 16:30] VITALS: BP 129/89
== END 2021-03-04 16:35 | disposition home or self-care (01) ==
LOC: EDHOLD 09:45 → ED 09:45 → MEDTELE 20:24
PROVIDERS: ADMIT Hospitalist; ATTEND Hospitalist